=== PATIENT | male | born 1990 | race Caucasian/White ===

== ENCOUNTER 2021-06-06 11:40 | Emergency (ER) | payer OTHER ==
[~2021-06-06] VITALS: Ht 177.8 cm; Wt 79.4 kg
[2021-06-06 11:48] VITALS: BP 120/67
[2021-06-06] MEDS ORDERED: KETOROLAC 30 MG/ML VIAL IM ONE (12:25)
[2021-06-06 12:54] LABS: BASOPHILS % (AUTO) 0.2 % (0.0-2.0); EOSINOPHILS % (AUTO) 0.3 % (0.0-4.0); HEMATOCRIT 44.9 % (36-52); HEMOGLOBIN 15.2 g/dL (12.0-18.0); LYMPHOCYTES # (AUTO) 1.3 K/uL (2.0-11.5); MEAN CORPUSCULAR HEMOGLOBIN 29 pg (27-31); MEAN CORPUSCULAR HGB CONC 34 g/dL (33-37); MONOCYTES # (AUTO) 1.5 K/uL (0.8-1.0); MONOCYTES % (AUTO) 9.1 % (1.7-9.3); NEUTROPHILS # (AUTO) 13.7 K/uL (1.8-7.7); PLATELET COUNT (AUTO) 277 K/uL (140-450); RED BLOOD CELL COUNT(AUTO) 5.22 MIL/uL (4.20-6.10); RED CELL DISTRIBUTION WIDTH 12.9 % (11.6-13.7); WHITE BLOOD COUNT (AUTO) 16.6 K/uL (4.8-10.8)
[2021-06-06 13:05] LABS: LYMPHOCYTES % (AUTO) 7.9 % (20.5-51.1); NEUTROPHILS % (AUTO) 82.5 % (42.2-75.2)
[2021-06-06 13:16] LABS: ALBUMIN 3.8 g/dL (3.4-5.0); ANION GAP 9.3 (8-16); CARBON DIOXIDE 31.5 mmol/L (21-32); CREATININE 0.8 mg/dL (0.6-1.3); POTASSIUM 3.8 mmol/L (3.5-5.1); TOTAL BILIRUBIN 1.4 mg/dL (0.0-1.0)
[2021-06-06] MEDS ORDERED: cefTRIAXone 500 MG in LIDOCAINE MPF 1% 1 ML IM ONE (13:45)
[2021-06-06] MEDS ORDERED: ACETAMINOPHEN/CODEINE 300/30MG 1 TAB PO ONE (13:45)
[2021-06-06] MEDS ORDERED: VIB100 PO (13:46)
[2021-06-06] MEDS ORDERED: NAPR-54 PO (13:46)
[2021-06-06] MEDS ORDERED: cefTRIAXone 500 MG VIAL ONE (13:56)
[2021-06-06] MEDS ORDERED: LIDOCAINE MPF 1% 5 ML ONE (13:58)
[2021-06-06 14:07] LABS: APPEARANCE,URINE HAZY (CLEAR); BILIRUBIN,URINE NEGATIVE (NEGATIVE); BLOOD, URINE TRACE-I (NEGATIVE); COLOR,URINE YELLOW (YELLOW); LEUKOCYTE ESTERASE ,URINE 1+ (NEGATIVE); NITRITE, URINE NEGATIVE (NEGATIVE); PH,URINE 6.5 (5.0-9.0); UGLUCOSE NEGATIVE (NEGATIVE)
[2021-06-06 14:22] LABS: WBC,URINE 16-25 (MOD) /HPF (0-5)
[2021-06-06 14:45] VITALS: BP 125/83
== END 2021-06-06 14:45 | disposition home or self-care (01) ==
LOC: MED 11:40
DX: N50.811 Right testicular pain (principal); N45.1 Epididymitis; Z79.899 Other long term (current) drug therapy
CPT/HCPCS: 36415; 76870; 80053; 81001; 85025; 87086; 87491; 96372; 99284; J0696; J1885; J2001; Q0092; 81002

== ENCOUNTER 2021-06-07 20:32 | Emergency (ER) | payer MEDICAID, OTHER ==
[~2021-06-07] VITALS: Ht 177.8 cm; Wt 79.4 kg
[~2021-06-07 20:32] MED LIST: NAPR-54 PO; VIB100 PO
[2021-06-07 20:40] VITALS: BP 120/81
--- NOTE | 2021-06-07 20:40 | NUR ---
PT TAKEN TO BED #9
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
[2021-06-07] MEDS ORDERED: KETOROLAC 30 MG/ML VIAL IVP ONE (21:40)
--- NOTE | 2021-06-07 21:51 | NUR ---
ULTRASOUND AT BEDSIDE
--- NOTE | 2021-06-07 21:54 | NUR ---
US AT BEDSIDE.
[2021-06-07 22:33] LABS: APPEARANCE,URINE SL CLOUDY (CLEAR); BILIRUBIN,URINE NEGATIVE (NEGATIVE); BLOOD, URINE 1+ (NEGATIVE); COLOR,URINE YELLOW (YELLOW); LEUKOCYTE ESTERASE ,URINE 1+ (NEGATIVE); NITRITE, URINE NEGATIVE (NEGATIVE); UGLUCOSE NEGATIVE (NEGATIVE)
[2021-06-07 22:43] LABS: WBC,URINE 60-80 /HPF (0-5)
--- NOTE | 2021-06-07 22:43 | NUR ---
PT APPEARS TO BE RESTING W EYES CLOSED IN SUPINE POSITION. X1 SIDERAIL UP, BED LOCKED IN LOWEST POSITION. BREATHING EVEN AND UNLABORED. VSS ON MONITOR. NAD NOTED, WILL CONTINUE TO MONITOR.
[2021-06-07] MEDS ORDERED: cefTRIAXone 1,000 MG VIAL ONE (23:47)
--- NOTE | 2021-06-07 23:58 | NUR ---
BLOOD CULTURES WERE DRAWN AND DROPPED OFF IN LAB.
--- NOTE | 2021-06-08 01:01 | NUR ---
PT PROVIDED WITH MEAL AT THIS TIME.
[2021-06-08] MEDS ORDERED: NAPR-54 PO (01:35)
[2021-06-08] MEDS ORDERED: CIPR500T4 PO (01:35)
--- NOTE | 2021-06-08 01:50 | NUR ---
Patient discharged with v/s stable. Written and verbal after care instructions given and explained. Patient alert, oriented and verbalized understanding of instructions. Ambulatory with steady gait. All questions addressed prior to discharge. ID band removed. Patient advised to follow up with PMD. Rx of CIPROFLOXACIN and NAPROXEN given. Patient educated on indication of medication including possible reaction and side effects. Opportunity to ask questions provided and answered.
[2021-06-08 02:27] VITALS: BP 121/68
--- NOTE | 2021-06-09 11:26 | NUR ---
LATE ENTRY. RECEIVED POSITIVE CHLAMYDIA RESULT FROM LAB. TREATMENT APPROPRIATE PER DR LANDAVERDE. NO NUMBER ON FILE, UNABLE TO NOTIFY PT.
== END 2021-06-08 01:50 | disposition home or self-care (01) ==
LOC: MED 20:32
DX: N39.0 Urinary tract infection, site not specified (principal); N45.3 Epididymo-orchitis; Z79.1 Long term (current) use of non-steroidal anti-inflammatories (NSAID); Z79.2 Long term (current) use of antibiotics
CPT/HCPCS: 36415; 76870; 81001; 87040; 87086; 87491; 96365; 96375; 99285; J0696; J1885; Q0092

== ENCOUNTER 2021-09-10 12:18 | Emergency (ER) | payer MEDICAID, OTHER ==
[~2021-09-10] VITALS: Ht 177.8 cm; Wt 87.1 kg
[~2021-09-10 12:18] MED LIST changes: +CIPR500T4 PO
[2021-09-10 12:23] VITALS: BP 80/41
[2021-09-10] MEDS ORDERED: KETOROLAC 30 MG/ML VIAL IM ONE (12:35)
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
--- NOTE | 2021-09-10 12:41 | NUR ---
PT TAKEN TO XR WITH XR TECH BY WC
--- NOTE | 2021-09-10 12:50 | NUR ---
PT BROUGHT BACK FROM XR, PT STATED HE HAS TO MUCH PAIN AND IS UNABLE TO TAKE THE XR AT THIS TIME DAJA DUVAL MADE ASHLY.RE
--- NOTE | 2021-09-10 13:00 | NUR ---
XR AT BEDSIDE PERFOMING PORTABLE XR, PT TOLERATED WELL.
[2021-09-10] MEDS ORDERED: ACETAMINOPHEN EXTRA STRENGTH 500 MG TAB PO ONE (13:40)
[2021-09-10] MEDS ORDERED: NAPR-54 PO (14:07)
== END 2021-09-10 14:13 | disposition home or self-care (01) ==
LOC: MED 12:18
DX: S63.502A Unspecified sprain of left wrist, initial encounter (principal); Z79.899 Other long term (current) drug therapy; W19.XXXA Unspecified fall, initial encounter; Y93.89 Activity, other specified; Y92.89 Other specified places as the place of occurrence of the external cause; Y99.8 Other external cause status
CPT/HCPCS: 29125; 73110; 73130; 96372; 99284; J1885; Q0092